=== PATIENT | male | born 1995 | race African-American/Black ===

== ENCOUNTER 2018-10-26 11:25 | Emergency (ER) | payer SELFPAY ==
[2018-10-26] MEDS ORDERED: HYDROcodone/Acetaminophen 5/325 mg Tablet ONE (12:29)
== END 2018-10-26 13:32 | disposition home or self-care (01) ==
LOC: ERS 11:25
DX: K03.81 Cracked tooth (principal); K02.9 Dental caries, unspecified; K04.7 Periapical abscess without sinus; F17.210 Nicotine dependence, cigarettes, uncomplicated
CPT/HCPCS: 99283

== ENCOUNTER 2019-09-09 12:26 | Emergency (ER) | payer SELFPAY | END 2019-09-09 13:40 | disposition home or self-care (01) | LOC: ERS 12:26 | DX: K04.7 Periapical abscess without sinus (principal); F17.290 Nicotine dependence, other tobacco product, uncomplicated | CPT/HCPCS: 99282 ==

== ENCOUNTER 2019-12-11 17:54 | Emergency (ER) | payer SELFPAY ==
[2019-12-11] MEDS ORDERED: Lidocaine Viscous Sol 2% 15 ml UD Cup ONE (18:48)
[2019-12-11] MEDS ORDERED: Ondansetron ODT 8 MG TAB ONE (18:48)
[2019-12-11] MEDS ORDERED: Mag-Al 1200 mg/1200 mg/30 ML UDCUP ONE (18:48)
== END 2019-12-11 19:35 | disposition home or self-care (01) ==
LOC: ERS 17:54
DX: K29.00 Acute gastritis without bleeding (principal); E86.0 Dehydration
CPT/HCPCS: 99283; Q0162

== ENCOUNTER 2020-02-08 06:38 | Emergency (ER) | payer BC, OTHER ==
[2020-02-09 14:46] LABS: SARS-CoV-2 MS2 Positive; SARS-CoV-2 N Gene Negative; SARS-CoV-2 S Gene Negative; SARS-CoV-2 by NAA Not Detected (NotDetected); SARS-CoV-2 orf1ab Negative
== END 2020-02-08 08:13 | disposition home or self-care (01) ==
LOC: ERS 06:38
DX: R19.7 Diarrhea, unspecified (principal); R05 Cough; Z20.828 Contact with and (suspected) exposure to other viral communicable diseases; F17.290 Nicotine dependence, other tobacco product, uncomplicated
CPT/HCPCS: 87635; 99283; U0003

== ENCOUNTER 2020-04-02 20:02 | Emergency (ER) | payer BC ==
[2020-04-02] MEDS ORDERED: Acetaminophen 500 MG TAB ONE (21:19)
== END 2020-04-02 21:20 | disposition home or self-care (01) ==
LOC: ERS 20:02
DX: K04.7 Periapical abscess without sinus (principal); K02.9 Dental caries, unspecified; F17.200 Nicotine dependence, unspecified, uncomplicated
CPT/HCPCS: 99283

== ENCOUNTER 2020-07-17 16:38 | Emergency (ER) | payer BC ==
[2020-07-18 02:23] LABS: SARS-CoV-2 MS2 Positive; SARS-CoV-2 N Gene Negative; SARS-CoV-2 S Gene Negative; SARS-CoV-2 by NAA Not Detected (NotDetected); SARS-CoV-2 orf1ab Negative
== END 2020-07-17 17:10 | disposition home or self-care (01) ==
LOC: ERS 16:38
DX: R05 Cough (principal); J02.9 Acute pharyngitis, unspecified; Z20.822 Contact with and (suspected) exposure to COVID-19
CPT/HCPCS: 87635; 99283; U0003